=== PATIENT | male | born 1980 | race American Indian/Alaskan Native ===

== ENCOUNTER 2017-07-05 19:44 | Emergency (ER) | payer OTHER ==
--- NOTE | 2017-07-05 21:23 | Emergency Department Report ---
HPI - General Chief Complaint: Sore Throat Time Seen by Provider: 07/05/17 21:23 - HPI HPI: Patient here complaining of sore throat with painful swallowing 3 days. Denies any nausea or vomiting. Denies any fever or chills. Pain is 6-7 out of 10 and feels sore worse with swallowing. Patient also with elevated blood pressure of 159/112 which is repeated and still remain elevated. He said he has high blood pressure and takes lisinopril with combination of HCTZ but he did not take it today. Denies any headache, chest pain or shortness of breath. Denies any blurred vision or dizziness. Patient denies any headache. She denies any drooling. He reports some drainage of the back of his throat without any nasal congestion and occasional coughing. ED Past Medical Hx - Past Medical History Previous Medical History?: Yes Hx Hypertension: Yes - Surgical History Past Surgical History?: Yes Additional Surgical History: Right ankle - Family History Family history: hypertension - Social History Smoking Status: Never Smoker Substance Use Type: None Other Social History: Patient is single and lives with family - Medications Home Medications: Home Medications Medication Instructions Recorded Confirmed Last Taken Type Cetirizine HCl [ZyrTEC] 10 mg PO QAM #14 capsule 07/05/17 Unknown Rx Ibuprofen [Motrin] 600 mg PO Q8H PRN #12 tablet 07/05/17 Unknown Rx ED Review of Systems ROS: Stated complaint: SORE THROAT Other details as noted in HPI Comment: All other systems reviewed and negative Constitutional: denies: chills, fever Eyes: denies: vision change ENT: throat pain, other (postnasal drainage). denies: ear pain, dental pain, hearing loss, congestion Respiratory: cough. denies: orthopnea, shortness of breath, SOB with exertion, SOB at rest, stridor, wheezing Cardiovascular: denies: chest pain, palpitations, edema, syncope Gastrointestinal: denies: abdominal pain, nausea, vomiting, diarrhea Musculoskeletal: denies: back pain, joint swelling, arthralgia, myalgia Skin: denies: rash Neurological: denies: headache, weakness, numbness, paresthesias, confusion, abnormal gait, vertigo Physical Exam - Physical Exam Vital Signs: Vital Signs 07/05/17 20:27 Temperature 98.4 F Pulse Rate 89 Respiratory 18 Rate Blood Pressure 159/112 Blood Pressure 159/112 [Left] O2 Sat by Pulse 98 Oximetry Vital Signs 07/05/17 07/05/17 20:27 22:16 Temperature 98.4 F Pulse Rate 89 Respiratory 18 Rate Blood Pressure 159/112 Blood Pressure 159/112 140/90 [Left] O2 Sat by Pulse 98 Oximetry General: This is a 36-year-old male well-nourished well-developed in no acute distress Physical Exam: Head: Normocephalic, atraumatic. No abrasions, laceration or contusion Neck: Supple, no adenopathy. Full range of motion. No C-spine tenderness. No muscular tenderness Eyes: Bilateral sclera icterus, no conjunctival injection, bilateral pupils equal and reactive to light. Bilateral EOM intact. Ears: Bilateral TMs ingested without erythema .bilaterally EAC without any redness swelling or drainage. Nose: Raz nasal mucosa without any erythema but congested congestion. No drainage. No maxillary or frontal sinus tenderness. Mouth: Moist, No pharyngeal exudate with mild erythema. Uvula is midline and oral airways patent. No peritonsillar abscess. Oral airway is patent. CV:S1, S2 regular rate and rhythm. Lungs: Clear to auscultate to lung alfaro. Normal work of breathing. Abdomen: Soft, normal bowel sounds in all quadrants. No rigidity or distention. Extremity: No clubbing, cyanosis or edema. +2 pulses in all extremities. No neurovascular compromise. Capillary refill is less than 3 seconds. Skin: Clean dry and intact, no rash or lesions. PSYCH: Smiling and appropriate for age ED Course Vital Signs 07/05/17 20:27 Temperature 98.4 F Pulse Rate 89 Respiratory 18 Rate Blood Pressure 159/112 Blood Pressure 159/112 [Left] O2 Sat by Pulse 98 Oximetry Vital Signs 07/05/17 07/05/17 20:27 22:16 Temperature 98.4 F Pulse Rate 89 Respiratory 18 Rate Blood Pressure 159/112 Blood Pressure 159/112 140/90 [Left] O2 Sat by Pulse 98 Oximetry - Reevaluation(s) Reevaluation #1: 07/05/17 22:02 Patient given Motrin 800mg for sore throat and clonidine 0.2mg po for elevated bp. will reeval. Strep negative. CX pending ED Medical Decision Making - Lab Data Rapid strep negative and CX pending - Medical Decision Making ED course: Patient here reports sore throat for 3 days. Denies any fever or chills. Denies any drooling. Strep Negative and culture pending and this was relayed to patient. Physical findings for upper respiratory tract infection, acute pharyngitis more than likely viral, elevated blood pressure with history of hypertension. I discussed the patient diagnosis and treatment plan and he voiced understanding. Patient was given clonidine 0.2 mg for elevated blood pressure because he did not take his lisinopril and HCTZ today. Recheck on blood pressure reveal 140/90 and he said his sore throat is better after getting Motrin. Patient was given Motrin 800 mg emergency room for sore throat. The patient that he needs to take his blood pressure medication on a daily basis and not to skip any days and he voiced understanding. She does have a primary care physician who he says he has an appointment with this mind. I told him to keep a log of his blood pressure and take to his primary care visit. Patient discharged home with prescription for Motrin and Zyrtec. Critical care attestation.: If time is entered above; I have spent that time in minutes in the direct care of this critically ill patient, excluding procedure time. ED Disposition Clinical Impression: Elevated systolic blood pressure reading with diagnosis of hypertension Acute pharyngitis Qualifiers: Pharyngitis/tonsillitis etiology: unspecified etiology Qualified Code(s): J02.9 - Acute pharyngitis, unspecified Upper respiratory tract infection Qualifiers: URI type: unspecified URI Qualified Code(s): J06.9 - Acute upper respiratory infection, unspecified Disposition: - TO HOME OR SELFCARE Is pt being admited?: No Does the pt Need Aspirin: No Condition: Stable Instructions: Hypertension (ED), Pharyngitis (ED), Upper Respiratory Infection (ED) Additional Instructions: Please keep a log a few blood pressure and take your primary care physician visit with you. Take your blood pressure medication as scheduled Take medication as prescribed Prescriptions: Cetirizine HCl [ZyrTEC] 10 mg PO QAM #14 capsule Ibuprofen [Motrin] 600 mg PO Q8H PRN #12 tablet PRN Reason: Pain Referrals: PRIMARY CARE, [Primary Care Provider] - 3-5 Days Forms: Work/School Release Form(ED)
[2017-07-05] MEDS ORDERED: MOTRIN PO ONE (21:31)
[2017-07-05] MEDS ORDERED: CATAPRES ONE (21:31)
[2017-07-05] MEDS ORDERED: CATAPRES PO ONE (21:31)
[2017-07-05] MEDS ORDERED: MOTRIN ONE (21:31)
[2017-07-05 22:17] VITALS: BP 140/90
== END 2017-07-05 22:45 | disposition home or self-care (01) ==
LOC: ED 19:44
DX: J06.9 Acute upper respiratory infection, unspecified (principal); I10 Essential (primary) hypertension; J02.9 Acute pharyngitis, unspecified
CPT/HCPCS: 87116; 87430; 99282

== ENCOUNTER 2018-05-12 09:07 | Emergency (ER) | payer OTHER ==
[2018-05-12 09:33] VITALS: BP 167/92
[2018-05-12 10:26] LABS: Bacteria,Urine 4+ /HPF (Negative); Bilirubin,Urine NEG (Negative); Blood,Urine LG (Negative); Color,Urine Red (Yellow); Urobilinogen,Urine < 2.0 mg/dL (<2.0)
[2018-05-12 10:28] LABS: RBC,Urine > 182.0 /HPF (0.0-6.0); WBC,Urine > 182.0 /HPF (0.0-6.0)
--- NOTE | 2018-05-12 11:34 | Emergency Department Report ---
ED Dysuria HPI - HPI Chief Complaint: Abdominal Pain Stated Complaint: URINARY PROBLEM Time Seen by Provider: 05/12/18 11:14 Duration: Today Location of Discomfort: Flank (right flank) Severity: Mild Symptoms: Dysuria: No, Frequency: No, Suprapubic Pain: No, Flank Pain: Yes ( right flank), Fever: No, Hematuria: Yes, Abdominal Pain: Yes (right lower quadrant), Previous UTI's: No Other History: This is a 37-year-old male that presents with right lower quadrant pain that is radiating to right flank and hematuria that started today. Patient reports pain was sharp initially this morning and right lower quadrant and radiating to right flank after voiding this morning. Patient reports noticing orange urine while forgetting this morning and a large clot in the toilet. He has not had any pain since but decided to follow-up in the ER for evaluation. He is currently not in pain. Denies nausea, vomiting, chest pain, shortness of breath, urgency, frequency, and discharge. ED Review of Systems ROS: Stated complaint: URINARY PROBLEM Other details as noted in HPI Constitutional: denies: chills, fever Respiratory: denies: cough, shortness of breath, wheezing Cardiovascular: denies: chest pain, palpitations Gastrointestinal: abdominal pain (right lower quadrant radiating to right flank) . denies: nausea, vomiting, diarrhea Genitourinary: hematuria. denies: urgency, dysuria Neurological: denies: headache, weakness, paresthesias Psychiatric: denies: anxiety, depression ED Past Medical Hx - Past Medical History Hx Hypertension: Yes - Surgical History Additional Surgical History: Right ankle - Social History Smoking Status: Never Smoker Substance Use Type: None - Medications Home Medications: Home Medications Medication Instructions Recorded Confirmed Last Taken Type Cetirizine HCl [ZyrTEC] 10 mg PO QAM #14 capsule 07/05/17 Unknown Rx Ibuprofen [Motrin] 600 mg PO Q8H PRN #12 tablet 07/05/17 Unknown Rx Tamsulosin [Flomax] 0.4 mg PO QDAY #20 cap 05/12/18 Unknown Rx traMADol [Ultram 50 MG tab] 50 mg PO Q6HR PRN #15 tablet 05/12/18 Unknown Rx Dysuria Exam - Exam General: Vital signs noted. No distress. Alert and acting appropriately. Exam: Yes Moist Mucous Membranes, Yes CVA Tenderness (right flank), Yes Abdominal Tenderness (right lower quadrant), No Rigidity or Guarding Labs: Lab Results 05/12/18 Range/Units 09:43 Urine Color Red (Yellow) Urine Turbidity Cloudy (Clear) Urine pH 6.0 (5.0-7.0) Ur Specific [place] 1.014 (1.003-1.030) Urine Protein 100 mg/dl (Negative) mg/dL Urine Glucose (UA) Neg (Negative) mg/dL Urine Ketones Neg (Negative) mg/dL Urine Blood Lg (Negative) Urine Nitrite Neg (Negative) Urine Bilirubin Neg (Negative) Urine Urobilinogen < 2.0 (<2.0) mg/dL Ur Leukocyte Esterase Neg (Negative) Urine WBC (Auto) > 182.0 H (0.0-6.0) /HPF Urine RBC (Auto) > 182.0 (0.0-6.0) /HPF Urine Bacteria (Auto) 4+ (Negative) /HPF ED Course Vital Signs 05/12/18 09:30 Temperature 98.3 F Pulse Rate 77 Respiratory 18 Rate Blood Pressure 167/92 O2 Sat by Pulse 99 Oximetry ED Medical Decision Making - Radiology Data Radiology results: report reviewed CT ABDOMEN PELVIS WITHOUT CONTRAST: HISTORY: Right lower quadrant pain, rule out kidney stones. COMPARISON: none. TECHNIQUE: Helical CT in 1.25mm intervals without IV contrast. Sagittal and coronal reconstructions. FINDINGS: Lung bases: Normal. Liver: Mild diffuse fatty infiltration of the liver is noted. No enlargement or focal mass. Biliary system: Normal. Pancreas: Normal. Spleen: Normal. Kidneys/ureters/bladder: Both kidneys are normal size, contour and position. A solitary 3 mm left renal stone is noted at the superior pole. There are 2 cysts in the right kidney measuring up to 2 cm but no evidence for renal stones. The ureters are normal course and caliber. The bladder is unremarkable. Adrenal glands: Normal. Aorta: Normal. Intestines: Within normal limits given no oral contrast was administered. Appendix: Normal. Ascites: None. Adenopathy: None. Musculoskeletal: Normal. IMPRESSION: 3 mm left renal stone, nonobstructing. Right renal cysts. Mild fatty infiltration of the liver. No acute inflammatory process or clear explanation for right lower quadrant pain is identified. - Medical Decision Making This patient is a 37 y.o. male that presents with hematuria and right flank pain that started this morning. History of hypertension. Patient was examined by me in the ER. Vitals are stable. He is currently not in pain. Obtain urinalysis and CT of abdomen to rule out kidney stones. CT impression: 3 mm left renal stone, nonobstructing. Right renal cysts. Mild fatty infiltration of the liver. No acute inflammatory process or clear explanation for right lower quadrant pain is identified. Start tamsulosin and tramadol and follow up with urology. Discussed plan with patient. No further questions and's. Instructed to follow up with urology and primary care provider in 24-72 hours. Critical care attestation.: If time is entered above; I have spent that time in minutes in the direct care of this critically ill patient, excluding procedure time. ED Disposition Clinical Impression: Nephrolithiasis, Right flank pain, Right lower quadrant abdominal pain Disposition: TO HOME OR SELFCARE Is pt being admited?: No Does the pt Need Aspirin: No Condition: Stable Instructions: Abdominal Pain (ED), Kidney Stones (ED), Flank Pain (ED) Additional Instructions: Increased fluid intake to 2 L per day. Take tramadol every 6 hours as needed for pain. Monitor urine output for passing of stone. Follow up with urology and primary care provider in 24-72 hours. Prescriptions: Tamsulosin [Flomax] 0.4 mg PO QDAY #20 cap traMADol [Ultram 50 MG tab] 50 mg PO Q6HR PRN #15 tablet PRN Reason: Pain Referrals: HILARIA MEYERS MD [Primary Care Provider] - 3-5 Days DAVID TANG MD [Staff Physician] - 3-5 Days Forms: Work/School Release Form(ED) Time of Disposition: 13:54 Print Language: YAKUT
--- NOTE | 2018-05-12 13:45 | Cat Scan Report ---
CT ABDOMEN PELVIS WITHOUT CONTRAST: HISTORY: Right lower quadrant pain, rule out kidney stones. COMPARISON: none. TECHNIQUE: Helical CT in 1.25mm intervals without IV contrast. Sagittal and coronal reconstructions. FINDINGS: Lung bases: Normal. Liver: Mild diffuse fatty infiltration of the liver is noted. No enlargement or focal mass. Biliary system: Normal. Pancreas: Normal. Spleen: Normal. Kidneys/ureters/bladder: Both kidneys are normal size, contour and position. A solitary 3 mm left renal stone is noted at the superior pole. There are 2 cysts in the right kidney measuring up to 2 cm but no evidence for renal stones. The ureters are normal course and caliber. The bladder is unremarkable. Adrenal glands: Normal. Aorta: Normal. Intestines: Within normal limits given no oral contrast was administered. Appendix: Normal. Ascites: None. Adenopathy: None. Musculoskeletal: Normal. IMPRESSION: 3 mm left renal stone, nonobstructing. Right renal cysts. Mild fatty infiltration of the liver. No acute inflammatory process or clear explanation for right lower quadrant pain is identified.
== END 2018-05-12 14:04 | disposition home or self-care (01) ==
LOC: ED 09:07
DX: N20.0 Calculus of kidney (principal); R10.31 Right lower quadrant pain; I10 Essential (primary) hypertension
CPT/HCPCS: 74176; 81001

== ENCOUNTER 2021-05-27 10:25 | Emergency (ER) | payer BC ==
[2021-05-27 10:46] VITALS: BP 144/100
--- NOTE | 2021-05-27 12:46 | Emergency Department Report ---
ED Lower Extremity HPI - General Chief Complaint: Extremity Problem,Nontraumatic Stated Complaint: RT KNEE SWOLLEN Time Seen by Provider: 05/27/21 12:35 Source: patient Mode of arrival: Ambulatory Limitations: No Limitations - History of Present Illness Initial Comments: 40-year-old -[place] male presents to the emergency room complaining of right knee swelling and pain since yesterday. Patient states that he may have lifted something heavy at his work . Patient states bending the knee makes it worse standing up makes it better. Patient reports a past medical history of hypertension. Reports he takes lisinopril and Norvasc. Has not taken anything for his pain. Denies any falls or trauma. MD Complaint: knee injury Onset/Timin -: days(s) Injury: Knee: Right Type of Injury: hyperflexion Place: work Severity scale (0 -10): 9 Improves With: other (Standing) Worsens With: movement (Pending) Associated Symptoms: swelling, able to partially bear weight - Related Data Home Medications Medication Instructions Recorded Confirmed Last Taken amLODIPine [Norvasc] 10 mg PO DAILY 02/20/21 02/20/21 Unknown lisinopriL [Lisinopril] 20 mg PO DAILY 02/20/21 02/20/21 Unknown Previous Rx's Medication Instructions Recorded Last Taken Type Naproxen 500 mg PO BID PRN 10 Days #20 05/27/21 Unknown Rx tablet Allergies Allergy/AdvReac Type Severity Reaction Status Date / Time No Known Allergies Allergy Verified 02/20/21 13:44 ED Review of Systems ROS: Stated complaint: RT KNEE SWOLLEN Other details as noted in HPI Comment: All other systems reviewed and negative ED Past Medical Hx - Past Medical History Previous Medical History?: Yes Hx Hypertension: Yes Hx Kidney Stones: Yes - Surgical History Past Surgical History?: Yes Additional Surgical History: Right ankle - Social History Smoking Status: Never Smoker - Medications Home Medications: Home Medications Medication Instructions Recorded Confirmed Last Taken Type amLODIPine [Norvasc] 10 mg PO DAILY 02/20/21 02/20/21 Unknown History lisinopriL [Lisinopril] 20 mg PO DAILY 02/20/21 02/20/21 Unknown History Naproxen 500 mg PO BID PRN 10 Days #20 05/27/21 Unknown Rx tablet ED Physical Exam - General Limitations: No Limitations General appearance: alert, in no apparent distress - Head Head exam: Present: atraumatic, normocephalic - Eye Eye exam: Present: normal appearance - ENT ENT exam: Present: normal external ear exam - Neck Neck exam: Present: normal inspection, full ROM - Respiratory Respiratory exam: Absent: accessory muscle use - Cardiovascular Cardiovascular Exam: Present: regular rate - Expanded Lower Extremity Exam Right Hip exam: Present: full ROM Upper Leg exam: Present: normal inspection, full ROM Knee exam: Present: full ROM, swelling. Absent: abrasion, laceration, deformity Lower Leg exam: Present: normal inspection, full ROM. Absent: tenderness, swelling Ankle exam: Present: normal inspection, full ROM Foot/Toe exam: Present: normal inspection, full ROM Neuro vascular tendon exam: Present: no vascular compromise Gait: Positive: antalgic - Back Exam Back exam: Present: normal inspection - Neurological Exam Neurological exam: Present: alert, oriented X3 - Psychiatric Psychiatric exam: Present: normal affect, normal mood - Skin Skin exam: Present: warm, dry, intact, normal color. Absent: rash ED Course Vital Signs 05/27/21 10:45 Temperature 99.1 F Pulse Rate 84 Respiratory 14 Rate Blood Pressure 144/100 O2 Sat by Pulse 99 Oximetry ED Lower Extremity MDM - Radiology Data [facility] [address] [place] [address] XRay Report Signed Patient: KIM RODRIGUEZ MR#: [id number] : 1980 Acct:[id number] Age/Sex: 40 / M ADM Date: 05/27/21 Loc: ED Attending Dr: Ordering Physician: CARLY BLOCK Date of Service: 05/27/21 Procedure(s): XR knee 3V RT Accession Number(s): [id number] cc: CARLY BLOCK Fluoro Time In Minutes: RIGHT KNEE 3 VIEW(S) INDICATION / CLINICAL INFORMATION: R Knee pain swelling. COMPARISON: None available. FINDINGS: BONES / JOINT(S): No acute fracture or subluxation. No significant arthritis. SOFT TISSUES: Mild subcutaneous soft tissue swelling within the anterior and medial aspect of knee ADDITIONAL FINDINGS: None. Signer Name: Clayton Turpin MD Signed: 05/27/2021 12:59 PM Workstation Name: [id number] Transcribed By: TL Dictated By: Clayton Turpin MD Electronically Authenticated By: Clayton Turpin MD Signed Date/Time: 05/27/21 125 DD/ TD/TT: Print Critical care attestation.: If time is entered above; I have spent that time in minutes in the direct care of this critically ill patient, excluding procedure time. ED Disposition Clinical Impression: Right anterior knee pain Disposition: DC- TO HOME OR SELFCARE Is pt being admited?: No Does the pt Need Aspirin: No Condition: Stable Instructions: Acute Knee Pain, Adult, [id number] Additional Instructions: X-ray of knee shows no fractures dislocation. Does show some swelling. Recommend knee immobilizer ice elevate. Naproxen for pain. Follow-up with orthopedic provider. Prescriptions: Naproxen 500 mg PO BID PRN 10 Days #20 tablet PRN Reason: Pain , Severe (7-10) Referrals: PRIMARY MD MARKEL [Primary Care Provider] - 3-5 Days CHRISTIAN LIND MD [Staff Physician] - 3-5 Days Forms: Work/School Release Form(ED)
--- NOTE | 2021-05-27 13:04 | XRay Report ---
RIGHT KNEE 3 VIEW(S) INDICATION / CLINICAL INFORMATION: R Knee pain swelling. COMPARISON: None available. FINDINGS: BONES / JOINT(S): No acute fracture or subluxation. No significant arthritis. SOFT TISSUES: Mild subcutaneous soft tissue swelling within the anterior and medial aspect of knee ADDITIONAL FINDINGS: None. Signer Name: Clayton Turpin MD Signed: 05/27/2021 12:59 PM Workstation Name: [id number]
== END 2021-05-27 13:47 | disposition home or self-care (01) ==
LOC: ED 10:25
DX: M25.561 Pain in right knee (principal); I10 Essential (primary) hypertension; Z79.899 Other long term (current) drug therapy; Z98.890 Other specified postprocedural states